=== PATIENT | male | born 1950 | race Caucasian/White ===

== ENCOUNTER → 2024-02-14 09:10 | Outpatient (REF) | payer MEDICARE, SELFPAY | LOC: HWRAD 09:10 | PROVIDERS: ATTENDING PHYSICIAN Family Medicine | DX: M81.0 Age-related osteoporosis without current pathological fracture (principal); Z79.52 Long term (current) use of systemic steroids | CPT/HCPCS: 77080 ==

== ENCOUNTER 2025-01-21 08:30 | Emergency (ER) | payer MEDICARE, SELFPAY ==
[2025-01-21 08:31] VITALS: BP 176/100
--- NOTE | 2025-01-21 09:00 | ED.GENMED ---
History of Present Illness
General
Chief Complaint: Rectal Bleeding
Time Seen by Provider: 01/21/25 09:00
History of Present Illness
History of Present Illness:
TIME OF INITIAL ENCOUNTER: 9 AM
HPI: Patient presents with rectal bleeding that started yesterday. He is on aspirin for prophylaxis but does not have any known coronary disease or cerebrovascular disease. He states that he has had hemorrhoids but was not sure that this was a
hemorrhoid because he was not straining yesterday. He never had any perianal pain or any abdominal pain. He had a kidney transplant in the past but renal function is reportedly normal.
EXAM:
GENERAL: Well appearing in no distress
HEENT: Moist oral mucosa
CARDIOVASCULAR: No murmurs, normal heart rate, regular rhythm, No chest wall tenderness
PULMONARY: No respiratory distress, breath sounds are clear and equal
ABDOMEN: Soft with no peritoneal signs, no tenderness, there is suggestion of nonbleeding hemorrhoid at the 3 o'clock position of the anal verge
NEUROLOGIC: Excellent strength all extremities, no coordination deficits
PSYCHIATRIC: Appropriate mental status, normal insight and judgement
EXTREMITIES: Nontender, no edema, moves all extremities equally
SKIN: No rash, no lesions
NUMBER AND COMPLEXITY OF PROBLEMS ADDRESSED AT THE ENCOUNTER
� Chronic conditions affecting care: Had kidney transplant, IDDM, hemorrhoids
� Acute Exacerbation and/or Progression of Chronic Illness: This is an acute problem
� Differential Diagnosis includes: Hemorrhoidal bleeding, diverticular bleeding, bleeding from antiplatelet use
AMOUNT AND/OR COMPLEXITY OF DATA TO BE REVIEWED AND ANALYZED
� I performed an independent evaluation of and my interpretation is:
EKG:
CT:
X-rays:
Laboratory Studies: White blood cell count of 6.9, hemoglobin is 12.1 which is higher than it was in November 2021, creatinine 0.9, BUN 23 (lower than prior)
Other:
� Review of other/old records: The patient was admitted with FRANCHESKA in November 2021
� Clinical information was obtained by an independent historian: I spoke to grandson at bedside
� Prescriptions/Medications Considered but not given:
� Further testing considered but not performed:
RISK OF COMPLICATIONS AND/OR MORBIDITY OR MORTALITY OF PATIENT MANAGEMENT
� Social determinants of health affecting care: Lives at home
� Discussion with other providers: Dr. Chauhan
� Escalation of care including admission/observation vs risk of discharge considered: Based on appearance of right red blood, highly doubt upper GI bleed. He has no pain. He is hemodynamically stable and somewhat hypertensive
however he did arrive slightly tachycardic stating that he feels anxious.
ANY OTHER UPDATES:
The patient did have an episode of bleeding shortly after arrival in the emergency department.
11:45 AM: The patient has had no further bleeding over the last 1-1/2 to 2 hours. He has remained hemodynamically stable and heart rate has decreased. Dr. Chauhan agrees with close outpatient follow-up.
Past History
Past History
ED Past Medical History: HTN, Hypercholesterolemia, NIDDM and Other (History of kidney failure with kidney transplant in 2002)
ED Past Surgical History: Other (Kidney transplant 2002)
Social History
Tobacco: Smoker (Cigars occasionally)
Alcohol: None
Drug: None
Personal:
Living: with family
Employment: Employed
Family History
Family History: Other (Noncontributory)
Phy Exam
Physical Exam
Physical Exam:
See HPI
Course
Orders/Labs/Results
Orders:
Orders
01/21/25 08:46
Cardiac Monitoring- Treatment ONCE
IV Insert/Care/Rem.- Treatment PRN
O2 Therapy [RESP] Urgent
Titrate/Wean O2 to maintain O2 sat greater than (%): 93
Special Instructions: MAINTAIN CONTINOUS O2 SATS > OR = 93%
Pulse Ox/spot Check [RESP] Urgent
Quantity: 1
Special Instructions: ON ROOM AIR
01/21/25 09:14
Type+Screen Urgent
Complete Blood Count/With Diff Urgent
Comprehensive Metabolic Panel Urgent
PTT Urgent
Prothrombin Time Urgent
01/21/25 09:47
ABO2 Urgent
BBK Wristband Number:
Associate notified that ABO2 has been ordered: [id number]
Date: 01/21/25
Time: :25
Title I Teacher ID: [id number]
Abnormal Lab Results
01/21/25
09:14
RBC 4.08 L 10^6/uL
(4.70-6.10)
Hgb 12.1 L g/dL
(13.0-18.0)
Hct 36.6 L %
(39.0-52.0)
Absolute Monos (auto) 1.1 H 10^3/uL
(0.1-0.6)
Monocytes % 15.4 H %
(1.7-9.3)
Chloride 108 H mmol/L
(98-107)
BUN 23 H mg/dl
(9-20)
Glucose 172 H mg/dl
(70-99)
01/21/25 09:14
01/21/25 09:14
Vital Signs
Initial and Last Documented VS:
Initial Vital Signs
Temp Pulse Resp BP Pulse Ox
36.9 C 120 18 176/100 96
01/21/25 08:31 01/21/25 08:31 01/21/25 08:31 01/21/25 08:31 01/21/25 08:31
Last Documented Vital Signs
Temp Pulse Resp BP Pulse Ox
36.9 C 102 16 150/86 94
01/21/25 08:31 01/21/25 09:30 01/21/25 09:30 01/21/25 09:28 01/21/25 09:30
*Critical Care Note
Total Time (30-74mins, 75-104mins- exclusive of procedures): Not Applicable
ED Attending Note
-
Portions of this chart may have been created with voice recognition software.� Occasional wrong word or��sound alike� substitutions may have occurred due to the inherent limitations of voice recognition software.
Discharge Plan
Departure
Patient Disposition: Home (Routine Discharge)
Date of Disposition: 01/21/25
Time of Disposition: 11:45
Patient with high blood pressure during this ER visit?: Yes
Discharge Problem:
Acute lower gastrointestinal bleeding
Instructions: Gastrointestinal Bleeding (DC)
Prescriptions:
No Action
tacrolimus 1 MG capsule
3 mg PO DAILY
tacrolimus 1 MG capsule
2 mg PO HS
famotidine 40 MG tablet
40 mg PO HS
prednisone 5 MG tablet
5 mg PO DAILY
amlodipine 2.5 MG tablet
2.5 mg PO DAILY
aspirin 81 MG tablet,chewable
81 mg PO DAILY
rosuvastatin 10 MG tablet
10 mg PO DAILY
multivitamin with folic acid [Tab-A-Lalit] 1 TABLET tablet
1 tab PO DAILY
insulin glargine [Lantus Solostar U-100 Insulin] 300 UNITS/3 ML insulin pen
44 units SC HS
Patient Comments:
First dose Lantus started 05/19/16
tamsulosin 0.4 mg Capsule
0.4 mg PO DAILY
dapagliflozin propanediol [Farxiga] 5 mg Tablet
10 mg PO DAILY
Mounjaro 2.5 mg/0.5 mL Pen Injector
2.5 mg SC QWEEK
Rx Instructions:
for 4 weeks
Humalog KwikPen Insulin 200 UNIT/ML insulin pen
18 unit SC AMHS
Humalog KwikPen Insulin 200 UNIT/ML insulin pen
24 unit SC DAILY@1200
Referrals:
Carolina Leal MD [Family Provider] -
Activity Restrictions/Additional Instructions:
The hemoglobin level is normal and actually improved compared to prior. Kidney function is normal. I spoke to Dr. Chauhan, partner of Dr. Kwok their office this week to arrange close follow-up. I recommend that you stop aspirin for the next week.
Return here if worse or other concerns.
Interventions
Interventions:
*Risk Screen - Suicide Last Done: 01/21/25 08:31
*General Assessment Last Done: 01/21/25 08:31
*Neglect/Abuse Screening Last Done: 01/21/25 09:31
*ED- Fall Risk Assessment Last Done: 01/21/25 11:39
*ED COVID-19 Vaccine History Last Done: 01/21/25 08:31
UY-Dcdblw-Odhlnfuxaj Assessment Last Done: 01/21/25 09:31
ED- Cardiac Assessment Last Done: 01/21/25 09:31
ED- Pulmonary Assessment Last Done: 01/21/25 09:31
Discharge Date and Time
Print Language: ANDORRAN
[2025-01-21 09:21] LABS: % Basophils 0.4 % (0-2); % Eosinophils 4.1 % (0-6); % Immature Granulocytes 0.1 % (0-0.5); % Lymphocytes 22.7 % (20.5-51.1); % Monocytes 15.4 % (1.7-9.3); % Neutrophils 57.3 % (42.2-75.2); Absolute Eosinophils 0.3 10^3/uL (0-0.7); Absolute Lymphocytes 1.6 10^3/uL (1.2-3.4); Absolute Monocytes 1.1 10^3/uL (0.1-0.6); Absolute Neutrophils 3.9 10^3/uL (1.4-6.5); Hematocrit 36.6 % (39.0-52.0); Hemoglobin 12.1 g/dL (13.0-18.0); Mean Corp Hgb Conc. 33.1 g/dL (33.0-37.0); Mean Corpuscular Hgb 29.7 pg (27.0-31.0); Mean Corpuscular Volume 89.7 fL (80.0-94.0); Mean Platelet Volume 9.9 fL (7.4-10.4); Nucleated Red Blood Cells % 0 % (-); Platelet Count 157 10^3/uL (130-400); Red Blood Cell Count 4.08 10^6/uL (4.70-6.10); Red Cell Dist. Width 13.2 % (11.5-14.5); White Blood Cell Count 6.9 10^3/uL (4.8-10.8)
[2025-01-21 09:28] VITALS: BP 150/86
[2025-01-21 09:37] LABS: INR 0.94; PT 12.9 Sec (11.4-14.6)
[2025-01-21 09:38] LABS: APTT 26.3 Sec (23.4-35.0)
[2025-01-21 09:39] LABS: ALT (SGPT) 28 U/L (0-50); AST (SGOT) 21 U/L (17-59); Albumin 3.9 g/dl (3.5-5.0); Alkaline Phosphatase 61 U/L (38-126); Blood Urea Nitrogen 23 mg/dl (9-20); Calcium 9.3 mg/dl (8.4-10.2); Carbon Dioxide 24 mmol/L (22-30); Chloride 108 mmol/L (98-107); Glucose 172 mg/dl (70-99); Potassium 4.2 mmol/L (3.5-5.1); Sodium 141 mmol/L (135-145); Total Bilirubin 0.5 mg/dl (0.2-1.3); Total Protein 6.5 g/dl (6.3-8.2); eGFR > 60.00
== END 2025-01-21 12:15 | disposition home or self-care (01) ==
LOC: EMR 08:30
PROVIDERS: Emergency Medicine; EMERGENCY PHYSICIAN Emergency Medicine; FAMILY PHYSICIAN Family Medicine
DX: K92.2 Gastrointestinal hemorrhage, unspecified (principal); E11.9 Type 2 diabetes mellitus without complications; Z94.0 Kidney transplant status; F17.290 Nicotine dependence, other tobacco product, uncomplicated; I10 Essential (primary) hypertension; E78.00 Pure hypercholesterolemia, unspecified; Z87.19 Personal history of other diseases of the digestive system
CPT/HCPCS: 99283; 80053; 85025; 85610; 85730; 86850; 86900; 86901

== ENCOUNTER 2025-01-24 14:52 | Inpatient (IN) | payer MEDICARE, SELFPAY ==
[2025-01-24] VITALS (13 sets, daily range): BP systolic 112–147; BP diastolic 59–79; BMI 29.8; BMI 29.4
[2025-01-24 12:03] LABS: ALT (SGPT) 25 U/L (0-50); AST (SGOT) 19 U/L (17-59); Alkaline Phosphatase 56 U/L (38-126); Blood Urea Nitrogen 20 mg/dl (9-20); Calcium 8.5 mg/dl (8.4-10.2); Carbon Dioxide 24 mmol/L (22-30); Chloride 106 mmol/L (98-107); Glucose 152 mg/dl (70-99); Sodium 139 mmol/L (135-145); Total Bilirubin 0.5 mg/dl (0.2-1.3); Total Protein 6.2 g/dl (6.3-8.2); eGFR > 60.00
[2025-01-24 12:04] LABS: INR 0.99; PT 13.6 Sec (11.4-14.6)
--- NOTE | 2025-01-24 12:26 | ED.GENMED ---
History of Present Illness
General
Chief Complaint: Rectal Bleeding
Time Seen by Provider: 01/24/25 12:26
History of Present Illness
History of Present Illness:
TIME OF INITIAL ENCOUNTER: 12:30 PM
HPI: I saw this patient 3 days ago with similar symptoms. At that time he came in with bright red rectal bleeding that started the day prior. He is on aspirin for prophylaxis for CAD but does not have any known CAD/cerebrovascular disease. He was
diagnosed with hemorrhoids in the past. He has not had any abdominal pain. He has a history of renal transplant. He does not necessarily feel any shortness of breath or weaker than baseline.
EXAM:
GENERAL: Well appearing in no distress
HEENT: Moist oral mucosa
CARDIOVASCULAR: No murmurs, tachycardic heart rate, regular rhythm, No chest wall tenderness
PULMONARY: No respiratory distress, breath sounds are clear and equal
ABDOMEN: Soft with no peritoneal signs, no tenderness, no obvious hemorrhoids on exam and the blood is darker in appearance and not as bright as it was 3 days ago
NEUROLOGIC: Excellent strength all extremities, no coordination deficits
PSYCHIATRIC: Appropriate mental status, normal insight and judgement
EXTREMITIES: Nontender, no edema, moves all extremities equally
SKIN: No rash, no lesions
NUMBER AND COMPLEXITY OF PROBLEMS ADDRESSED AT THE ENCOUNTER
� Chronic conditions affecting care: Has had kidney transplant, IDDM, hemorrhoids, diverticular disease
� Acute Exacerbation and/or Progression of Chronic Illness: This is a subacute problem
� Differential Diagnosis includes: Hemorrhoidal bleed, diverticular bleeding, bleeding from antiplatelet use, anemia
AMOUNT AND/OR COMPLEXITY OF DATA TO BE REVIEWED AND ANALYZED
� I performed an independent evaluation of and my interpretation is:
EKG:
CT:
X-rays:
Laboratory Studies: CMP unremarkable exception of glucose of 152, hemoglobin 10.2.
Other:
� Review of other/old records: I reviewed records, the patient was admitted here with FRANCHESKA in November 2021
� Clinical information was obtained by an independent historian: I spoke to at bedside
� Prescriptions/Medications Considered but not given:
� Further testing considered but not performed:
RISK OF COMPLICATIONS AND/OR MORBIDITY OR MORTALITY OF PATIENT MANAGEMENT
� Social determinants of health affecting care: Lives at home
� Discussion with other providers: I notified Dr. Andrea of patient's presentation at 12:[address] Valencia for admission.
� Escalation of care including admission/observation vs risk of discharge considered: The other day, Dr. Chauhan evaluated patient in the Emergency Department and recommended outpatient follow-up. The patient's hemoglobin has
dropped 2 g from Wednesday until yesterday and is the same from yesterday to today. However symptoms have been worsening more recently. I spoke to Who recommends patient stay in the hospital for further observation and management. On rectal
examination today, the blood is darker than it was 3 days ago.
ANY OTHER UPDATES:
Past History
Past History
ED Past Medical History: HTN, Hypercholesterolemia, NIDDM and Other (History of kidney failure with kidney transplant in 2002)
ED Past Surgical History: Other (Kidney transplant 2002)
Social History
Tobacco: Smoker (Cigars occasionally)
Alcohol: None
Drug: None
Personal:
Living: with family
Employment: Employed
Family History
Family History: Other (Noncontributory)
Phy Exam
Physical Exam
Physical Exam:
See HPI
Course
Orders/Labs/Results
Orders:
Orders
01/24/25 11:38
Type+Screen Urgent
Complete Blood Count/With Diff Urgent
Comprehensive Metabolic Panel Urgent
PTT Urgent
Prothrombin Time Urgent
01/24/25 13:28
0.9% Sodium Chloride 500 ml [Nss] 500 ml IV BOLUS
Abnormal Lab Results
01/24/25
11:38
RBC 3.33 L 10^6/uL
(4.70-6.10)
Hgb 10.2 L g/dL
(13.0-18.0)
Hct 29.6 L %
(39.0-52.0)
MPV 10.5 H fL
(7.4-10.4)
Absolute Monos (auto) 1.2 H 10^3/uL
(0.1-0.6)
Monocytes % 16.8 H %
(1.7-9.3)
Glucose 152 H mg/dl
(70-99)
Total Protein 6.2 L g/dl
(6.3-8.2)
01/24/25 11:38
01/24/25 11:38
Vital Signs
Initial and Last Documented VS:
Initial Vital Signs
Temp Pulse Resp BP Pulse Ox
36.6 C 110 16 131/79 98
01/24/25 11:29 01/24/25 11:29 01/24/25 11:29 01/24/25 11:29 01/24/25 11:29
Last Documented Vital Signs
Temp Pulse Resp BP Pulse Ox
36.6 C 94 25 131/61 94
01/24/25 11:29 01/24/25 13:35 01/24/25 13:35 01/24/25 13:35 01/24/25 13:35
*Critical Care Note
Total Time (30-74mins, 75-104mins- exclusive of procedures): Not Applicable
ED Attending Note
-
Portions of this chart may have been created with voice recognition software.� Occasional wrong word or��sound alike� substitutions may have occurred due to the inherent limitations of voice recognition software.
Discharge Plan
Departure
Patient Disposition: Admit
Date of Disposition: 01/24/25
Time of Disposition: 12:56
Presentation/result/management discussed w/ accepting MD/DO: Hospitalist
Discharge Problem:
Acute lower gastrointestinal bleeding
Prescriptions:
No Action
tacrolimus 1 MG capsule
3 mg PO DAILY
tacrolimus 1 MG capsule
2 mg PO HS
famotidine 40 MG tablet
40 mg PO HS
prednisone 5 MG tablet
5 mg PO DAILY
aspirin 81 MG tablet,chewable
81 mg PO DAILY
rosuvastatin 10 MG tablet
10 mg PO DAILY
multivitamin with folic acid [Tab-A-Lalit] 1 TABLET tablet
1 tab PO DAILY
insulin glargine [Lantus Solostar U-100 Insulin] 300 UNITS/3 ML insulin pen
44 units SC HS
tamsulosin 0.4 mg Capsule
0.4 mg PO DAILY
dapagliflozin propanediol [Farxiga] 5 mg Tablet
10 mg PO DAILY
Mounjaro 2.5 mg/0.5 mL Pen Injector
2.5 mg SC SA
Rx Instructions:
for 4 weeks
Humalog KwikPen Insulin 200 UNIT/ML insulin pen
18 unit SC DAILY
Humalog KwikPen Insulin 200 UNIT/ML insulin pen
24 unit SC DAILY@1200
acetaminophen [Tylenol] 325 mg Tablet
650 mg PO Q6HPRN PRN (Reason: mild pain)
Metamucil Packet
1 packet PO DAILY
amlodipine [Norvasc] 10 mg Tablet
10 mg PO DAILY
docusate sodium [Colace] 100 mg Capsule
100 mg PO DAILYPRN PRN (Reason: constipation)
losartan 100 mg Tablet
100 mg PO DAILY
dexlansoprazole 60 mg capsule,biphase delayed releas
60 mg PO DAILY
Humalog KwikPen Insulin 200 unit/mL (3 mL) Insulin Pen
34 unit SC QPM
Referrals:
Carolina Leal MD [Family Provider] -
Interventions
Interventions:
*Risk Screen - Suicide Last Done: 01/24/25 11:29
*General Assessment Last Done: 01/24/25 12:33
*Neglect/Abuse Screening Last Done: 01/24/25 11:29
*ED- Fall Risk Assessment Last Done: 01/24/25 12:33
PN-Rwcsnw-Dheobvfajn Assessment Last Done: 01/24/25 12:36
ED- Cardiac Assessment Last Done: 01/24/25 12:33
ED- Pulmonary Assessment Last Done: 01/24/25 12:33
Discharge Date and Time
Print Language: SAMI
[2025-01-24 12:36] LABS: % Basophils 0.4 % (0-2); % Eosinophils 3.1 % (0-6); % Immature Granulocytes 0.3 % (0-0.5); % Lymphocytes 26.2 % (20.5-51.1); % Monocytes 16.8 % (1.7-9.3); % Neutrophils 53.2 % (42.2-75.2); Absolute Eosinophils 0.2 10^3/uL (0-0.7); Absolute Lymphocytes 1.9 10^3/uL (1.2-3.4); Absolute Monocytes 1.2 10^3/uL (0.1-0.6); Absolute Neutrophils 3.8 10^3/uL (1.4-6.5); Hematocrit 29.6 % (39.0-52.0); Hemoglobin 10.2 g/dL (13.0-18.0); Mean Corp Hgb Conc. 34.5 g/dL (33.0-37.0); Mean Corpuscular Hgb 30.6 pg (27.0-31.0); Mean Corpuscular Volume 88.9 fL (80.0-94.0); Mean Platelet Volume 10.5 fL (7.4-10.4); Nucleated Red Blood Cells % 0 % (-); Platelet Count 164 10^3/uL (130-400); Red Blood Cell Count 3.33 10^6/uL (4.70-6.10); Red Cell Dist. Width 13.2 % (11.5-14.5); White Blood Cell Count 7.1 10^3/uL (4.8-10.8)
[2025-01-24] MEDS: NSS 500 IV (13:31)
--- NOTE | 2025-01-24 13:34 | HPS.HSE ---
Family Physician
-
Family Physician: Carolina Leal
Chief Complaint
-
rectal bleeding
History of Present Illness
Mr. Tien Harp is a 74 man with hx IDDM, PCKD s/p renal transplant 2002, HTN, HLD presents to the ER with rectal bleeding.
Patient states on Wednesday he noted mild streak of blood. Wednesday morning had significant bleeding in toilet bowl, seen in ER with plans for outpatient follow up. Hg was 12.1. He thought bleeding was resolving but this morning noted more blood in
toilet bowl with large clots.
He denies chest pain, shortness of breath. No abdominal pain. No nausea/vomiting. No fevers/chills. He took his morning medications.
Medical History
Past Medical History
Past Medical History: Reports Other ( IDDM, PCKD s/p renal transplant 2002, HTN, HLD)
Past Surgical History: Reports Other (renal transplant)
Social History
Tobacco: Non-smoker
Alcohol: None
Family History
Family History: Not pertinent
Allergies / Home Medications
Allergies reflects when Allergies were last updated in [employer].
Home Medications with original date entered in [employer]
Allergy/Medication List:
Allergies
Allergy/AdvReac Type Severity Reaction Status Date / Time
No Known Allergies Allergy Verified 01/24/25 11:28
Home Medications
tacrolimus 1 mg capsule, immediate-release 3 mg PO DAILY Kidney Disease 12/12/14
aspirin 81 mg chewable tablet 81 mg PO DAILY Blood clot prevention/tx 12/03/21
famotidine 40 mg tablet 40 mg PO HS Gastrointestinal issue 12/03/21
multivitamin with folic acid 400 mcg tablet (Tab-A-Lalit) 1 tab PO DAILY Supplement 12/03/21
prednisone 5 mg tablet 5 mg PO DAILY 12/03/21
rosuvastatin 10 mg tablet 10 mg PO DAILY High cholesterol 12/03/21
tacrolimus 1 mg capsule, immediate-release 2 mg PO HS Kidney Disease 12/03/21
insulin glargine 100 unit/mL (3 mL) subcutaneous pen (Lantus Solostar U-100 Insulin) 44 units SC HS Diabetes 03/31/22
dapagliflozin propanediol 5 mg tablet (Farxiga) 10 mg PO DAILY 01/21/25
insulin lispro 200 unit/mL (3 mL) subcutaneous pen (Humalog KwikPen U-200 Insulin) 18 unit SC DAILY Diabetes 01/21/25
insulin lispro 200 unit/mL (3 mL) subcutaneous pen (Humalog KwikPen U-200 Insulin) 24 unit SC DAILY@1200 Diabetes 01/21/25
tamsulosin 0.4 mg capsule 0.4 mg PO DAILY 01/21/25
tirzepatide 2.5 mg/0.5 mL subcutaneous pen injector (Mounjaro) 2.5 mg SC SA 01/21/25
acetaminophen 325 mg tablet (Tylenol) 650 mg PO Q6HPRN PRN mild pain 01/24/25
amlodipine 10 mg tablet (Norvasc) 10 mg PO DAILY 01/24/25
dexlansoprazole 60 mg capsule,biphase delayed release 60 mg PO DAILY 01/24/25
docusate sodium 100 mg capsule (Colace) 100 mg PO DAILYPRN PRN constipation 01/24/25
insulin lispro 200 unit/mL (3 mL) subcutaneous pen (Humalog KwikPen U-200 Insulin) 34 unit SC QPM 01/24/25
losartan 100 mg tablet 100 mg PO DAILY 01/24/25
psyllium 1 packet PO DAILY 01/24/25
Review of Systems
-
History Source: Patient
A 12 point ROS was completed and negative except as noted: Yes
Physical Exam
Vital Signs
Vital Signs
Temp Pulse Resp BP Pulse Ox
98 F 101 25 127/66 95
01/24/25 11:29 01/24/25 13:15 01/24/25 13:15 01/24/25 12:31 01/24/25 13:15
Physical Exam
General: No Apparent Distress
HEENT: PERRLA
Respiratory: Clear; No Wheezes
Cardiac: S1/S2 and Regular Rhythm
GI: Soft and Non Tender
Musculoskeletal: No Edema
Skin: Warm and Dry; No Rash
Neuro: AO x 3
Psych: Calm
Laboratory Results
-
01/24/25 11:38
01/24/25 11:38
Laboratory Results
PT 13.6 Sec (11.4-14.6) 01/24/25 11:38
INR 0.99 01/24/25 11:38
APTT 25.0 Sec (23.4-35.0) 01/24/25 11:38
Total Bilirubin 0.5 mg/dl (0.2-1.3) 01/24/25 11:38
AST 19 U/L (17-59) 01/24/25 11:38
ALT 25 U/L (0-50) 01/24/25 11:38
Alkaline Phosphatase 56 U/L (38-126) 01/24/25 11:38
Data Reviewed
-
Diagnostic Radiology: Report Reviewed by me
Lab Data: Labs Reviewed by me
Impression/Plan
-
Mr. Tien Harp is a 74 man with hx IDDM, PCKD s/p renal transplant 2002, HTN, HLD presents to the ER with rectal bleeding. He was seen on 01/21, Hg 12.1, discharged with close outpatient follow up. He represents today with recurrent bleeding.
Triage VS: T 36.6 C, P 110, RR 16, BP 131/79, SpO2 98%
LABS: WBC 7.1, Hg 102, PLT 164, Na 139, K + 4, Cl 106, CO2 24, BUN 20, Cr 1.0, Glucose 152, liver enzymes WNL
Bright Red Blood Per Rectum
Acute Blood Loss Anemia
-admit to telemetry
-trend Hg, blood consent signed in ER
-appreciate GI
-CLD
-hold HOOKER OFF aspirin (for PPx)
IDDM
-home regimen: Humalog 18 units/ 24 units/ 34 units; Lantus 44 units qhs; Mounjaro subQ Sa; Farxiga 10mg PO QD
-will order 1/2 dose Lantus 22 units qhs; 5 units pre-meals with SS while on CLD
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
-HOOKER OFF regimen: Tacrolimus 3mg PO QD; 2mg qhs and Prednisone 5mg PO QD
Essential HTN
-hold HOOKER OFF Amlodipine for now during bleed
-HOOKER OFF Losartan with hold parameters
HLD
-HOOKER OFF statin
GERD - HOOKER OFF PPI, Pepcid
DVT PPx SCD
FULL CODE
76 minutes spent on patient care
--- NOTE | 2025-01-24 17:00 | PTCARENOTE ---
Pt received from the ED via stretcher. Transport was w/o incident. Pt is AAOX3, HRR, LCTA, resp. easy. VSS, Pt is afebrile. Pt instructed on the plan of care. Pt verbalized understanding of instructions, call cardoso is within reach.
[2025-01-24 18:00] LABS: Glucose - Point of Care 151 mg/dl (70-99)
[2025-01-24] MEDS: NOVOLOG FLEXPEN-LOW RESISTANCE 1 UNITS SC (18:02)
[2025-01-24] MEDS: NOVOLOG FLEXPEN 5 UNITS SC (18:02)
[2025-01-24 20:32] LABS: Hematocrit 27.1 % (39.0-52.0); Hemoglobin 9.2 g/dL (13.0-18.0)
[2025-01-24 21:15] LABS: Glucose - Point of Care 130 mg/dl (70-99)
[2025-01-24] MEDS: PROGRAF 2 MG PO (21:23)
[2025-01-24] MEDS: PEPCID 40 MG PO (21:23)
[2025-01-24] MEDS: LANTUS 0.22 UNITS SC (21:24)
[2025-01-25] VITALS (9 sets, daily range): BP systolic 113–162; BP diastolic 53–83; PULSE 89–116
[2025-01-25 02:05] LABS: Hematocrit 27.5 % (39.0-52.0); Hemoglobin 9.3 g/dL (13.0-18.0)
--- NOTE | 2025-01-25 05:16 | PTCARENOTE ---
NO acute events overnight. No reported episodes of melena. Hgb checked q8h. Last hgb 9.3.
--- NOTE | 2025-01-25 05:34 | W.PN.GI.CBS2 ---
Today's Communication / Plan
-
Please see assessment and plan for details.
Assessment / Plan
-
1. GI bleed: Likely diverticular given his history, but about a 3 g drop overall, though no bowel movement since yesterday morning, has been hemodynamically stable. His initial drop in the hospital likely more from dilution and IV fluids rather
than active bleeding. At this point given almost 24 hours of no significant bleeding will restart diet and await morning hemoglobin. If stable and no further significant bleeding is okay to DC later today. He has an appointment already set up
with Dr. Robert for next Wednesday, can plan diagnostic colonoscopy after that. If signs of brisk bleeding then nuclear medicine bleeding scan.
Subjective
Subjective
Date of Service: January 25, 2025
Patient feeling well, no bowel movement since yesterday morning. No abdominal pain, nausea vomiting, lightheadedness or dizziness.
Objective
Data Reviewed
Laboratory Data:
Laboratory Results
PT 13.6 Sec (11.4-14.6) 01/24/25 11:38
INR 0.99 01/24/25 11:38
APTT 25.0 Sec (23.4-35.0) 01/24/25 11:38
Total Bilirubin 0.5 mg/dl (0.2-1.3) 01/24/25 11:38
AST 19 U/L (17-59) 01/24/25 11:38
ALT 25 U/L (0-50) 01/24/25 11:38
Alkaline Phosphatase 56 U/L (38-126) 01/24/25 11:38
Vital Signs and I&O:
Vital Signs
Temp Pulse Resp BP Pulse Ox
98.2 F 94 16 138/75 96
01/25/25 02:58 01/25/25 02:59 01/25/25 02:58 01/25/25 02:59 01/25/25 02:58
I&O
01/23/25 01/24/25 01/25/25
06:59 06:59 06:59
Intake Total 690 / 690
Balance 690 / 690
Physical Exam
Physical Exam
General: NAD
Abdomen: normal bowel sounds, soft, no tenderness, no masses or bruits, no ascites
[2025-01-25 06:54] LABS: Hematocrit 27.4 % (39.0-52.0); Hemoglobin 9.1 g/dL (13.0-18.0); Mean Corp Hgb Conc. 33.2 g/dL (33.0-37.0); Mean Corpuscular Hgb 29.7 pg (27.0-31.0); Mean Corpuscular Volume 89.5 fL (80.0-94.0); Mean Platelet Volume 10.2 fL (7.4-10.4); Platelet Count 155 10^3/uL (130-400); Red Blood Cell Count 3.06 10^6/uL (4.70-6.10); Red Cell Dist. Width 13.2 % (11.5-14.5)
[2025-01-25 07:14] LABS: Glucose - Point of Care 88 mg/dl (70-99)
[2025-01-25 07:21] LABS: Blood Urea Nitrogen 16 mg/dl (9-20); Calcium 8.5 mg/dl (8.4-10.2); Carbon Dioxide 26 mmol/L (22-30); Chloride 108 mmol/L (98-107); Estimated Creatinine Clearance 67 ml/min; Glucose 85 mg/dl (70-99); Magnesium 1.9 mg/dl (1.6-2.3); Potassium 4.2 mmol/L (3.5-5.1); Sodium 139 mmol/L (135-145); eGFR > 60.00
[2025-01-25] MEDS: NOVOLOG FLEXPEN SC (07:36)
[2025-01-25] MEDS: NOVOLOG FLEXPEN-LOW RESISTANCE SC ×3 (07:37→17:08)
[2025-01-25] MEDS: PROGRAF 3 MG PO (07:40)
[2025-01-25] MEDS: COZAAR 100 MG PO (07:41)
[2025-01-25] MEDS: PROTONIX 40 MG PO (07:41)
[2025-01-25] MEDS: DELTASONE 5 MG PO (07:41)
[2025-01-25] MEDS: FLOMAX 0.4 MG PO (07:41)
[2025-01-25] MEDS: NOVOLOG FLEXPEN 5 UNITS SC ×3 (09:33→17:09)
[2025-01-25 10:00] LABS: Hematocrit 29.8 % (39.0-52.0)
--- NOTE | 2025-01-25 10:05 | W.PN.HOSP.TC ---
Today's Communication/Plan
-
follow up further GI recs - will change to CLD for now
Assessment / Plan
Assessment / Plan
Mr. Tien Harp is a 74 man with hx IDDM, PCKD s/p renal transplant 2002, HTN, HLD presents to the ER with rectal bleeding. He was seen on 01/21, Hg 12.1, discharged with close outpatient follow up. He represents today with recurrent bleeding.
Bright Red Blood Per Rectum
Acute Blood Loss Anemia
-admit to telemetry
-recurrent bleeding this morning, repeat Hg later today
-appreciate GI
-hold FURNACE CHECKER aspirin (for PPx)
IDDM
-home regimen: Humalog 18 units/ 24 units/ 34 units; Lantus 44 units qhs; Mounjaro subQ Sa; Farxiga 10mg PO QD
-will order 1/2 dose Lantus 22 units qhs; 5 units pre-meals with SS while on CLD
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
-FURNACE CHECKER regimen: Tacrolimus 3mg PO QD; 2mg qhs and Prednisone 5mg PO QD
Essential HTN
-hold FURNACE CHECKER Amlodipine for now during bleed
-FURNACE CHECKER Losartan with hold parameters
HLD
-FURNACE CHECKER statin
GERD - FURNACE CHECKER PPI, Pepcid
DVT PPx SCD
FULL CODE
51 minutes spent on patient care
Anticipated Discharge: 24 - 48 hours
Subjective/Interval History
-
Date of Service: January 25, 2025
more clots this morning, had not had bleeding overnight
Objective Data
-
Labs:
Laboratory Results
01/25/25 01/25/25 01/25/25
01:59 06:01 09:53
WBC 6.0
Hgb 9.3 L 9.1 L 10.0 L
Hct 27.5 L 27.4 L 29.8 L
Plt Count 155
Sodium 139
Potassium 4.2
Chloride 108 H
Carbon Dioxide 26
BUN 16
Creatinine 0.9
Glucose 85
Calcium 8.5
Vital Signs:
Vital Signs
Temp Pulse Resp BP Pulse Ox
98.1 F 93 16 136/74 96
01/25/25 07:35 01/25/25 07:41 01/25/25 07:35 01/25/25 07:41 01/25/25 07:35
I&O
01/24/25 01/25/25 01/26/25
06:59 06:59 06:59
Intake Total 690 / 690
Balance 690 / 690
Review of Systems
-
History Source: Patient
All other systems: Reviewed and negative
Physical Exam
-
General: No Apparent Distress
HEENT: PERRLA
Respiratory: Clear to Auscultation; Negative Wheezes
Cardiac: Regular Rhythm and S1/S2
GI: Soft and Nontender
Musculoskeletal: No Edema
Skin: Warm and Dry; Negative Rash
Neuro: AO x 3
Psych: Calm
Data Reviewed
-
Diagnostic Radiology: Report Reviewed by me
Labs: Labs Reviewed by me
[2025-01-25 11:13] LABS: Glycohemoglobin (HgbA1c) 6.9 % (4.0-5.6)
[2025-01-25 11:45] LABS: Glucose - Point of Care 188 mg/dl (70-99)
--- NOTE | 2025-01-25 12:03 | CM ---
Patient seen bedside.
IA completed.
Patient lives with spouse.
Lives in apartment with elevator access.
Patient independent prior to admission without assistive devices.
patient retired, drives.
No hx VN, or skilled rehab.
IMM completed.
PCP: Dr Leal
Pharmacy: [facility]
Plan: home no needs, spouse will transport.
[2025-01-25] MEDS: NOVOLOG FLEXPEN-LOW RESISTANCE 1 UNITS SC (12:17)
[2025-01-25 17:05] LABS: Glucose - Point of Care 128 mg/dl (70-99)
[2025-01-25 20:30] LABS: Hemoglobin 9.2 g/dL (13.0-18.0)
[2025-01-25] MEDS: CRESTOR 20 MG PO (21:22)
[2025-01-25] MEDS: PROGRAF 2 MG PO (21:22)
[2025-01-25] MEDS: PEPCID 40 MG PO (21:22)
[2025-01-25 21:48] LABS: Glucose - Point of Care 105 mg/dl (70-99)
[2025-01-25] MEDS: LANTUS SC (23:22)
[2025-01-26] VITALS (14 sets, daily range): BP systolic 17–151; BP diastolic 60–85; PULSE 98–123
[2025-01-26 07:39] LABS: Glucose - Point of Care 109 mg/dl (70-99)
[2025-01-26] MEDS: NOVOLOG FLEXPEN-LOW RESISTANCE SC ×3 (07:47→17:27)
[2025-01-26] MEDS: COZAAR 100 MG PO (08:30)
[2025-01-26 08:31] LABS: Hematocrit 28.7 % (39.0-52.0); Hemoglobin 9.8 g/dL (13.0-18.0); Mean Corp Hgb Conc. 34.1 g/dL (33.0-37.0); Mean Corpuscular Hgb 30.2 pg (27.0-31.0); Mean Corpuscular Volume 88.6 fL (80.0-94.0); Mean Platelet Volume 10.4 fL (7.4-10.4); Platelet Count 186 10^3/uL (130-400); Red Blood Cell Count 3.24 10^6/uL (4.70-6.10); Red Cell Dist. Width 13.3 % (11.5-14.5); White Blood Cell Count 6.2 10^3/uL (4.8-10.8)
[2025-01-26] MEDS: DELTASONE 5 MG PO (08:32)
[2025-01-26] MEDS: PROGRAF 3 MG PO (08:32)
[2025-01-26] MEDS: PROTONIX 40 MG PO (08:33)
[2025-01-26] MEDS: NOVOLOG FLEXPEN 5 UNITS SC ×2 (08:33→18:10)
[2025-01-26] MEDS: FLOMAX 0.4 MG PO (08:33)
--- NOTE | 2025-01-26 08:41 | W.PN.HOSP.TC ---
Today's Communication/Plan
-
repeat Hg at noon
Fulls
F/U further GI recs
Assessment / Plan
Assessment / Plan
Mr. Tien Harp is a 74 man with hx IDDM, PCKD s/p renal transplant 2002, HTN, HLD presents to the ER with rectal bleeding. He was seen on 01/21, Hg 12.1, discharged with close outpatient follow up. He represents today with recurrent bleeding.
Bright Red Blood Per Rectum
Acute Blood Loss Anemia
-admitted to telemetry
-Hg has been stable
-recurrent bleeding again this morning versus old blood?, repeat Hg later today
-appreciate GI
-hold SERGING MACHINE OPERATOR aspirin (for PPx)
IDDM
-home regimen: Humalog 18 units/ 24 units/ 34 units; Lantus 44 units qhs; Mounjaro subQ Sa; Farxiga 10mg PO QD
-will order 1/2 dose Lantus 22 units qhs; 5 units pre-meals with SS while on CLD
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
-SERGING MACHINE OPERATOR regimen: Tacrolimus 3mg PO QD; 2mg qhs and Prednisone 5mg PO QD
Essential HTN
-hold SERGING MACHINE OPERATOR Amlodipine for now during bleed
-SERGING MACHINE OPERATOR Losartan with hold parameters
HLD
-SERGING MACHINE OPERATOR statin
GERD - SERGING MACHINE OPERATOR PPI, Pepcid
DVT PPx SCD
FULL CODE
51 minutes spent on patient care
Anticipated Discharge: Within 24 hours
Subjective/Interval History
-
Date of Service: January 26, 2025
some bleeding earlier this morning around 2 AM then small dark clots in stool an hour ago
no pain
Objective Data
-
Labs:
Laboratory Results
01/26/25
07:46
WBC 6.2
Hgb 9.8 L
Hct 28.7 L
Plt Count 186
Sodium Pending
Potassium Pending
Chloride Pending
Carbon Dioxide Pending
BUN Pending
Creatinine Pending
Glucose Pending
Calcium Pending
Vital Signs:
Vital Signs
Temp Pulse Resp BP Pulse Ox
97.8 F 101 16 138/72 93
01/26/25 07:31 01/26/25 07:31 01/26/25 07:31 01/26/25 07:31 01/26/25 07:31
I&O
01/25/25 01/26/25 01/27/25
06:59 06:59 06:59
Intake Total 690 / 690 1617 / 1617
Balance 690 / 690 1617 / 1617
Review of Systems
-
History Source: Patient
All other systems: Reviewed and negative
Physical Exam
-
General: No Apparent Distress
HEENT: PERRLA
Respiratory: Clear to Auscultation; Negative Wheezes
Cardiac: Regular Rhythm and S1/S2
GI: Soft and Nontender
Musculoskeletal: No Edema
Skin: Warm and Dry; Negative Rash
Neuro: AO x 3
Psych: Calm
Data Reviewed
-
Diagnostic Radiology: Report Reviewed by me
Labs: Labs Reviewed by me
[2025-01-26 09:04] LABS: Blood Urea Nitrogen 14 mg/dl (9-20); Calcium 8.9 mg/dl (8.4-10.2); Carbon Dioxide 25 mmol/L (22-30); Chloride 106 mmol/L (98-107); Estimated Creatinine Clearance 67 ml/min; Glucose 114 mg/dl (70-99); Potassium 4.3 mmol/L (3.5-5.1); Sodium 137 mmol/L (135-145); eGFR > 60.00
--- NOTE | 2025-01-26 10:39 | W.PN.GI.CBS2 ---
Today's Communication / Plan
-
still with bleeding last PM, 2 am and 7 am red blood with clots
hbg slow drop 9.8 today from 12 with onset cont to trend
plan for flex later today- with enema now then promotions specialist
NPO had clear breakfast - 8AM
last Mounjaro 01/20 -- checking with anesthesia with recent use
cont PPI
if increased frequent stools -- consider Nuc med bleeding scan
last colon 2021
family and nursing staff updated
pt is scheduled next week with Dr. Robert-- will need to decide if can cancel pending status
Assessment / Plan
-
74-year-old male with past medical history of polycystic kidney disease status post kidney transplant 2002 (on tacrolimus and prednisone), hyperlipidemia, hypertension, GERD, squamous cell cancer, recurrent basal cell cancer, metabolic syndrome,
diabetes (on insulin as well as Mounjaro), bilateral [place] nephrectomy, diverticulosis and colon polyp who presents to the emergency room with rectal bleeding. Initially was discharged then returns. Noted multiple intermittent red/burgundy stools
with clots since Wednesday. No AC. On Mounjaro prior to admission.
EGD: 08/21/2022 (Dr. Robert) - Normal esophagus. Biopsied.
- Erythematous mucosa in the antrum. Biopsied.
- 2 cm hiatal hernia.
- Normal examined duodenum.
Colonoscopy: 11/14/2021 (Dr. Robert) - Non-bleeding internal hemorrhoids.
- Diverticulosis in the sigmoid colon and in the
descending colon.
- The examination was otherwise normal.
- One 5 mm polyp in the ascending colon, removed with
a hot snare. Resected and retrieved. Clip (MR
conditional) was placed.
Rectal bleeding, diverticular vs other -- persistent since 01/22
History of kidney transplant
Diabetic on GLP-1
Plan:
still with bleeding last PM, 2 am and 7 am red blood with clots
hbg slow drop 9.8 today from 12 with onset cont to trend
plan for flex later today- with enema now then promotions specialist
NPO had clear breakfast - 8AM
last Mounjaro 01/20 -- checking with anesthesia with recent use
cont PPI
if increased frequent stools -- consider Nuc med bleeding scan
last colon 2021
family and nursing staff updated
pt is scheduled next week with Dr. Robert-- will need to decide if can cancel pending status
Subjective
Subjective
Date of Service: January 26, 2025
bloody stool overnight and this am with clots-- pattern has been large stool with blood and clots x 1 then no stool for several hours and recurrent pattern since Wednesday
Objective
Data Reviewed
Laboratory Data:
Laboratory Results
01/26/25 07:46
Laboratory Results
PT 13.6 Sec (11.4-14.6) 01/24/25 11:38
INR 0.99 01/24/25 11:38
APTT 25.0 Sec (23.4-35.0) 01/24/25 11:38
Magnesium 1.9 mg/dl (1.6-2.3) 01/25/25 06:01
Total Bilirubin 0.5 mg/dl (0.2-1.3) 01/24/25 11:38
AST 19 U/L (17-59) 01/24/25 11:38
ALT 25 U/L (0-50) 01/24/25 11:38
Alkaline Phosphatase 56 U/L (38-126) 01/24/25 11:38
Vital Signs and I&O:
Vital Signs
Temp Pulse Resp BP Pulse Ox
97.8 F 101 16 130/72 93
01/26/25 07:31 01/26/25 08:30 01/26/25 07:31 01/26/25 08:30 01/26/25 07:31
I&O
01/25/25 01/26/2525
06:59 06:59 06:59
Intake Total 690 / 690 1617 / 1617
Balance 690 / 690 1617 / 1617
Physical Exam
Physical Exam
HEENT: Anicteric and Moist mucous membranes
Cardiology: Normal Sinus Rhythm
Pulmonary: Clear
GI: Soft, Non Distended and Non Tender
Extremities: No Edema
Neuro: Non Focal
--- NOTE | 2025-01-26 11:51 | CM ---
Chart reviewed
For flex scan today - NPO
Plan - anticipate home no needs
[2025-01-26 12:29] LABS: Hemoglobin 9.4 g/dL (13.0-18.0)
[2025-01-26 12:31] LABS: Glucose - Point of Care 148 mg/dl (70-99)
[2025-01-26] MEDS: NOVOLOG FLEXPEN SC (12:33)
[2025-01-26 17:15] LABS: Glucose - Point of Care 147 mg/dl (70-99)
[2025-01-26 20:12] LABS: Hemoglobin 9.1 g/dL (13.0-18.0)
[2025-01-26 21:32] LABS: Glucose - Point of Care 170 mg/dl (70-99)
[2025-01-26] MEDS: LANTUS 0.22 UNITS SC (21:39)
[2025-01-26] MEDS: CRESTOR 20 MG PO (21:39)
[2025-01-26] MEDS: PROGRAF 2 MG PO (21:40)
[2025-01-26] MEDS: PEPCID 40 MG PO (21:40)
[2025-01-27 03:03] VITALS: BP 123/55
--- NOTE | 2025-01-27 05:40 | PTCARENOTE ---
Pt had 2 BM this shift 0200 and 0530 with small clots with small/mod yuly red blood. Pt reports he does not have control and has come on suddenly each time.
[2025-01-27 07:00] VITALS: BP 136/76
[2025-01-27 07:14] LABS: Glucose - Point of Care 122 mg/dl (70-99)
[2025-01-27] MEDS: PROTONIX 40 MG PO (07:57)
[2025-01-27] MEDS: COZAAR 100 MG PO (07:57)
[2025-01-27] MEDS: DELTASONE 5 MG PO (07:57)
[2025-01-27] MEDS: FLOMAX 0.4 MG PO (07:57)
[2025-01-27 07:58] LABS: Hematocrit 26.7 % (39.0-52.0); Mean Corp Hgb Conc. 33.7 g/dL (33.0-37.0); Mean Corpuscular Hgb 30.2 pg (27.0-31.0); Mean Corpuscular Volume 89.6 fL (80.0-94.0); Mean Platelet Volume 10.9 fL (7.4-10.4); Platelet Count 168 10^3/uL (130-400); Red Blood Cell Count 2.98 10^6/uL (4.70-6.10); Red Cell Dist. Width 13.2 % (11.5-14.5); White Blood Cell Count 6.5 10^3/uL (4.8-10.8)
[2025-01-27] MEDS: NOVOLOG FLEXPEN-LOW RESISTANCE SC ×2 (08:02→17:03)
[2025-01-27] MEDS: PROGRAF 3 MG PO (08:05)
--- NOTE | 2025-01-27 08:32 | W.PN.HOSP.TC ---
Today's Communication/Plan
-
clear
repeat Hg this afternoon
F/U further GI recs
Assessment / Plan
Assessment / Plan
Mr. Tien Harp is a 74 man with hx IDDM, PCKD s/p renal transplant 2002, HTN, HLD presents to the ER with rectal bleeding. He was seen on 01/21, Hg 12.1, discharged with close outpatient follow up. He represents today with recurrent bleeding.
Bright Red Blood Per Rectum
Acute Blood Loss Anemia
-admitted to telemetry
-Hg relatively stable
-s/p sigmoidoscopy on 01/26 with e/o recent diverticular bleeding and large amounts of residual blood
-further BRBPR this morning - likely old blood with stable Hg - will repeat again this afternoon
-appreciate GI
-hold WIRE TESTER aspirin (for PPx)
-continue clears
IDDM
-home regimen: Humalog 18 units/ 24 units/ 34 units; Lantus 44 units qhs; Mounjaro subQ Sa; Farxiga 10mg PO QD
-will order 1/2 dose Lantus 22 units qhs; 5 units pre-meals with SS while on CLD
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
-WIRE TESTER regimen: Tacrolimus 3mg PO QD; 2mg qhs and Prednisone 5mg PO QD
Essential HTN
-hold WIRE TESTER Amlodipine for now during bleed
-WIRE TESTER Losartan with hold parameters
HLD
-WIRE TESTER statin
GERD - WIRE TESTER PPI, Pepcid
DVT PPx SCD
FULL CODE
51 minutes spent on patient care
Anticipated Discharge: 24 - 48 hours
Subjective/Interval History
-
Date of Service: January 27, 2025
more bright red blood per rectum this morning
Objective Data
-
Labs:
Laboratory Results
01/27/25
06:08
WBC 6.5
Hgb 9.0 L
Hct 26.7 L
Plt Count 168
Sodium Pending
Potassium Pending
Chloride Pending
Carbon Dioxide Pending
BUN Pending
Creatinine Pending
Glucose Pending
Calcium Pending
Vital Signs:
Vital Signs
Temp Pulse Resp BP Pulse Ox
98.1 F 111 17 136/76 94
01/27/25 03:03 01/27/25 07:57 01/27/25 03:03 01/27/25 07:57 01/27/25 03:03
I&O
01/26/25 01/27/25 01/28/25
06:59 06:59 06:59
Intake Total 1617 / 1617 540 / 540
Balance 1617 / 1617 540 / 540
Review of Systems
-
History Source: Patient
All other systems: Reviewed and negative
Physical Exam
-
General: No Apparent Distress
HEENT: PERRLA
Respiratory: Clear to Auscultation; Negative Wheezes
Cardiac: Regular Rhythm and S1/S2
GI: Soft and Nontender
Musculoskeletal: No Edema
Skin: Warm and Dry; Negative Rash
Neuro: AO x 3
Psych: Calm
Data Reviewed
-
Diagnostic Radiology: Report Reviewed by me
Labs: Labs Reviewed by me
[2025-01-27 09:29] LABS: Blood Urea Nitrogen 16 mg/dl (9-20); Calcium 8.7 mg/dl (8.4-10.2); Carbon Dioxide 25 mmol/L (22-30); Chloride 103 mmol/L (98-107); Estimated Creatinine Clearance 61 ml/min; Glucose 105 mg/dl (70-99); Potassium 4.3 mmol/L (3.5-5.1); Sodium 138 mmol/L (135-145); eGFR > 60.00
[2025-01-27] MEDS: NOVOLOG FLEXPEN SC (09:29)
[2025-01-27 11:00] VITALS: BP 112/52
[2025-01-27 11:21] LABS: Glucose - Point of Care 171 mg/dl (70-99)
[2025-01-27] MEDS: NOVOLOG FLEXPEN-LOW RESISTANCE 1 UNITS SC (11:27)
[2025-01-27] MEDS: NOVOLOG FLEXPEN 5 UNITS SC ×2 (11:28→17:04)
--- NOTE | 2025-01-27 13:27 | W.PN.GI.CBS2 ---
Today's Communication / Plan
-
Flexible sigmoidoscopy 01/26/2025 showing multiple diverticulosis and old blood clots and a lot of old blood without any evidence of active bleeding.
Patient continues to report multiple bowel movements, hemoglobin did not drop and has been stable.
Rectal exam by me today showing dark blood without any overt red blood.
Would continue clear liquid diet for now.
If continued bleeding, will benefit from CT angiogram. Patient wants us to check with nephrology, Dr. MCKEON'S office prior to getting CT with IV contrast.
Will follow
Assessment / Plan
-
74-year-old male with past medical history of polycystic kidney disease status post kidney transplant 2002 (on tacrolimus and prednisone), hyperlipidemia, hypertension, GERD, squamous cell cancer, recurrent basal cell cancer, metabolic syndrome,
diabetes (on insulin as well as Mounjaro), bilateral [place] nephrectomy, diverticulosis and colon polyp who presents to the emergency room with rectal bleeding. Initially was discharged then returns. Noted multiple intermittent red/burgundy stools
with clots since Wednesday. No AC. On Mounjaro prior to admission.
EGD: 08/21/2022 (Dr. Robert) - Normal esophagus. Biopsied.
- Erythematous mucosa in the antrum. Biopsied.
- 2 cm hiatal hernia.
- Normal examined duodenum.
Colonoscopy: 11/14/2021 (Dr. Robert) - Non-bleeding internal hemorrhoids.
- Diverticulosis in the sigmoid colon and in the
descending colon.
- The examination was otherwise normal.
- One 5 mm polyp in the ascending colon, removed with
a hot snare. Resected and retrieved. Clip (MR
conditional) was placed.
Rectal bleeding, diverticular vs other -- persistent since 01/22
History of kidney transplant
Diabetic on GLP-1
Plan:
Flexible sigmoidoscopy 01/26/2025 showing multiple diverticulosis and old blood clots and a lot of old blood without any evidence of active bleeding.
Patient continues to report multiple bowel movements, hemoglobin did not drop and has been stable.
Rectal exam by me today showing dark blood without any overt red blood.
Would continue clear liquid diet for now.
If continued bleeding, will benefit from CT angiogram. Patient wants us to check with nephrology, Dr. MCKEON'S office prior to getting CT with IV contrast.
Will follow
Subjective
Subjective
Date of Service: January 27, 2025
Patient reports couple of episodes of bloody bowel movements overnight and 7 AM this morning
Objective
Data Reviewed
Laboratory Data:
Laboratory Results
01/27/25 06:08
Laboratory Results
PT 13.6 Sec (11.4-14.6) 01/24/25 11:38
INR 0.99 01/24/25 11:38
APTT 25.0 Sec (23.4-35.0) 01/24/25 11:38
Magnesium 1.9 mg/dl (1.6-2.3) 01/25/25 06:01
Total Bilirubin 0.5 mg/dl (0.2-1.3) 01/24/25 11:38
AST 19 U/L (17-59) 01/24/25 11:38
ALT 25 U/L (0-50) 01/24/25 11:38
Alkaline Phosphatase 56 U/L (38-126) 01/24/25 11:38
Vital Signs and I&O:
Vital Signs
Temp Pulse Resp BP Pulse Ox
97.8 F 96 16 112/52 95
01/27/25 11:00 01/27/25 11:00 01/27/25 11:00 01/27/25 11:00 01/27/25 11:00
I&O
01/26/25 01/27/25 01/28/25
06:59 06:59 06:59
Intake Total 1617 / 1617 540 / 540
Balance 1617 / 1617 540 / 540
Physical Exam
Physical Exam
GI: Soft, Non Distended and Non Tender
[2025-01-27 14:59] LABS: Hemoglobin 8.6 g/dL (13.0-18.0)
[2025-01-27 15:00] VITALS: BP 113/70
[2025-01-27 16:54] LABS: Glucose - Point of Care 147 mg/dl (70-99)
[2025-01-27 19:15] VITALS: BP 122/60
[2025-01-27 20:26] LABS: Hemoglobin 8.5 g/dL (13.0-18.0)
[2025-01-27] MEDS: PEPCID 40 MG PO (21:23)
[2025-01-27] MEDS: PROGRAF 2 MG PO (21:23)
[2025-01-27] MEDS: CRESTOR 20 MG PO (21:23)
[2025-01-27] MEDS: LANTUS 0.22 UNITS SC (21:24)
[2025-01-27 21:30] LABS: Glucose - Point of Care 172 mg/dl (70-99)
[2025-01-27 23:08] VITALS: BP 123/61
[2025-01-28 03:05] VITALS: BP 117/56
[2025-01-28 07:05] VITALS: BP 118/61
[2025-01-28 07:10] LABS: Hematocrit 25.8 % (39.0-52.0); Hemoglobin 8.7 g/dL (13.0-18.0); Mean Corp Hgb Conc. 33.7 g/dL (33.0-37.0); Mean Corpuscular Hgb 29.8 pg (27.0-31.0); Mean Corpuscular Volume 88.4 fL (80.0-94.0); Mean Platelet Volume 10.5 fL (7.4-10.4); Platelet Count 170 10^3/uL (130-400); Red Blood Cell Count 2.92 10^6/uL (4.70-6.10); Red Cell Dist. Width 13.1 % (11.5-14.5); White Blood Cell Count 6.2 10^3/uL (4.8-10.8)
[2025-01-28 08:11] LABS: Glucose - Point of Care 123 mg/dl (70-99)
[2025-01-28] MEDS: NOVOLOG FLEXPEN-LOW RESISTANCE SC ×2 (08:16→12:07)
[2025-01-28] MEDS: NOVOLOG FLEXPEN 5 UNITS SC ×3 (08:16→17:25)
[2025-01-28 08:23] LABS: Blood Urea Nitrogen 21 mg/dl (9-20); Calcium 8.9 mg/dl (8.4-10.2); Carbon Dioxide 24 mmol/L (22-30); Chloride 103 mmol/L (98-107); Estimated Creatinine Clearance 50 ml/min; Glucose 97 mg/dl (70-99); Potassium 4.5 mmol/L (3.5-5.1); Sodium 136 mmol/L (135-145); eGFR > 60.00
--- NOTE | 2025-01-28 08:38 | W.PN.HOSP.TC ---
Today's Communication/Plan
-
advance diet
Assessment / Plan
Assessment / Plan
Mr. Tien Harp is a 74 man with hx IDDM, PCKD s/p renal transplant 2002, HTN, HLD presents to the ER with rectal bleeding. He was seen on 01/21, Hg 12.1, discharged with close outpatient follow up. He represents today with recurrent bleeding.
Bright Red Blood Per Rectum
Acute Blood Loss Anemia
-admitted to telemetry
-s/p sigmoidoscopy on 01/26 with e/o recent diverticular bleeding and large amounts of residual blood
--Hg slightly downtrending to 8.7 this morning but no further bleeding overnight
-appreciate GI
-hold CLOTH TRIMMER HAND aspirin (for PPx)
-confirmed with GI, OK to advance to [facility]
IDDM
-home regimen: Humalog 18 units/ 24 units/ 34 units; Lantus 44 units qhs; Mounjaro subQ Sa; Farxiga 10mg PO QD
-will order 1/2 dose Lantus 22 units qhs; 5 units pre-meals with SS while on CLD
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
-CLOTH TRIMMER HAND regimen: Tacrolimus 3mg PO QD; 2mg qhs and Prednisone 5mg PO QD
Essential HTN
-hold CLOTH TRIMMER HAND Amlodipine for now during bleed
-CLOTH TRIMMER HAND Losartan with hold parameters
HLD
-CLOTH TRIMMER HAND statin
GERD - CLOTH TRIMMER HAND PPI, Pepcid
DVT PPx SCD
FULL CODE
51 minutes spent on patient care
Anticipated Discharge: Within 24 hours
Subjective/Interval History
-
Date of Service: January 28, 2025
no significant bleeding overnight
feels better
Objective Data
-
Labs:
Laboratory Results
01/28/25
05:50
WBC 6.2
Hgb 8.7 L
Hct 25.8 L
Plt Count 170
Sodium 136
Potassium 4.5
Chloride 103
Carbon Dioxide 24
BUN 21 H
Creatinine 1.2
Glucose 97
Calcium 8.9
Vital Signs:
Vital Signs
Temp Pulse Resp BP Pulse Ox
98.1 F 101 16 118/61 94
01/28/25 07:05 01/28/25 07:05 01/28/25 07:05 01/28/25 07:05 01/28/25 07:05
I&O
01/27/25 01/28/25 01/29/25
06:59 06:59 06:59
Intake Total 540 / 540 1440 / 1440
Balance 540 / 540 1440 / 1440
Review of Systems
-
History Source: Patient
All other systems: Reviewed and negative
Physical Exam
-
General: No Apparent Distress
HEENT: PERRLA
Respiratory: Clear to Auscultation; Negative Wheezes
Cardiac: Regular Rhythm and S1/S2
GI: Soft and Nontender
Musculoskeletal: No Edema
Skin: Warm and Dry; Negative Rash
Neuro: AO x 3
Psych: Calm
Data Reviewed
-
Diagnostic Radiology: Report Reviewed by me
Labs: Labs Reviewed by me
[2025-01-28] MEDS: PROTONIX 40 MG PO (09:21)
[2025-01-28] MEDS: PROGRAF 3 MG PO (09:21)
[2025-01-28] MEDS: COZAAR 100 MG PO (09:21)
[2025-01-28] MEDS: FLOMAX 0.4 MG PO (09:21)
[2025-01-28] MEDS: DELTASONE 5 MG PO (09:22)
--- NOTE | 2025-01-28 10:54 | W.PN.GI.CBS2 ---
Today's Communication / Plan
-
Plan:
Flexible sigmoidoscopy 01/26/2025 showing multiple diverticulosis and old blood clots and a lot of old blood without any evidence of active bleeding.
Patient continues to report multiple bowel movements, hemoglobin did not drop and has been stable.
Rectal exam by me today showing dark blood without any overt red blood.
Currently on low residue diet
Hemoglobin has been stable
Continue low residue diet after discharge for a couple of days. Continue Metamucil as an outpatient.
He has an appointment with Dr. Robert this coming week and can plan for colonoscopy after.
Assessment / Plan
-
74-year-old male with past medical history of polycystic kidney disease status post kidney transplant 2002 (on tacrolimus and prednisone), hyperlipidemia, hypertension, GERD, squamous cell cancer, recurrent basal cell cancer, metabolic syndrome,
diabetes (on insulin as well as Mounjaro), bilateral [place] nephrectomy, diverticulosis and colon polyp who presents to the emergency room with rectal bleeding. Initially was discharged then returns. Noted multiple intermittent red/burgundy stools
with clots since Wednesday. No AC. On Mounjaro prior to admission.
EGD: 08/21/2022 (Dr. Robert) - Normal esophagus. Biopsied.
- Erythematous mucosa in the antrum. Biopsied.
- 2 cm hiatal hernia.
- Normal examined duodenum.
Colonoscopy: 11/14/2021 (Dr. Robert) - Non-bleeding internal hemorrhoids.
- Diverticulosis in the sigmoid colon and in the
descending colon.
- The examination was otherwise normal.
- One 5 mm polyp in the ascending colon, removed with
a hot snare. Resected and retrieved. Clip (MR
conditional) was placed.
Rectal bleeding, diverticular vs other -- persistent since 01/22
History of kidney transplant
Diabetic on GLP-1
Plan:
Flexible sigmoidoscopy 01/26/2025 showing multiple diverticulosis and old blood clots and a lot of old blood without any evidence of active bleeding.
Patient continues to report multiple bowel movements, hemoglobin did not drop and has been stable.
Rectal exam by me today showing dark blood without any overt red blood.
Currently on low residue diet
Hemoglobin has been stable
Continue low residue diet after discharge for a couple of days. Continue Metamucil as an outpatient.
He has an appointment with Dr. Robert this coming week and can plan for colonoscopy after.
Subjective
Subjective
Date of Service: January 28, 2025
Patient without any abdominal pain, nausea or vomiting. No further bloody bowel movements. Tolerating full liquid diet and advance to low residue diet today.
Objective
Data Reviewed
Laboratory Data:
Laboratory Results
01/28/25 05:50
01/28/25 05:50
Laboratory Results
PT 13.6 Sec (11.4-14.6) 01/24/25 11:38
INR 0.99 01/24/25 11:38
APTT 25.0 Sec (23.4-35.0) 01/24/25 11:38
Magnesium 1.9 mg/dl (1.6-2.3) 01/25/25 06:01
Total Bilirubin 0.5 mg/dl (0.2-1.3) 01/24/25 11:38
AST 19 U/L (17-59) 01/24/25 11:38
ALT 25 U/L (0-50) 01/24/25 11:38
Alkaline Phosphatase 56 U/L (38-126) 01/24/25 11:38
Vital Signs and I&O:
Vital Signs
Temp Pulse Resp BP Pulse Ox
98.1 F 101 16 118/61 94
01/28/25 07:05 01/28/25 09:21 01/28/25 07:05 01/28/25 09:21 01/28/25 07:05
I&O
01/27/25 01/28/25 01/29/25
06:59 06:59 06:59
Intake Total 540 / 540 1440 / 1440
Balance 540 / 540 1440 / 1440
Physical Exam
Physical Exam
GI: Soft, Non Distended and Non Tender
[2025-01-28 11:08] VITALS: BP 120/65
[2025-01-28 11:58] LABS: Glucose - Point of Care 122 mg/dl (70-99)
[2025-01-28] MEDS: FERRLECIT 110 MG IV (13:03)
--- NOTE | 2025-01-28 13:03 | CM ---
Met with pt at bedside
Beatriz solids
to transport when d/c'ed
Given IMM
Plan - anticipate home no needs when medically ready
[2025-01-28 15:04] VITALS: BP 104/60
[2025-01-28 17:13] LABS: Glucose - Point of Care 186 mg/dl (70-99)
[2025-01-28] MEDS: NOVOLOG FLEXPEN-LOW RESISTANCE 1 UNITS SC (17:25)
[2025-01-28 19:45] VITALS: BP 128/63
[2025-01-28] MEDS: CRESTOR 20 MG PO (22:47)
[2025-01-28 22:48] LABS: Glucose - Point of Care 185 mg/dl (70-99)
[2025-01-28] MEDS: LANTUS 0.22 UNITS SC (22:48)
[2025-01-28] MEDS: PROGRAF 2 MG PO (22:48)
[2025-01-28] MEDS: PEPCID 40 MG PO (22:48)
[2025-01-28 22:52] VITALS: BP 124/62
[2025-01-29 04:05] VITALS: BP 114/59
[2025-01-29 07:30] VITALS: BP 145/72
[2025-01-29 08:24] LABS: Hematocrit 26.3 % (39.0-52.0); Hemoglobin 8.7 g/dL (13.0-18.0); Mean Corp Hgb Conc. 33.1 g/dL (33.0-37.0); Mean Corpuscular Hgb 29.4 pg (27.0-31.0); Mean Corpuscular Volume 88.9 fL (80.0-94.0); Mean Platelet Volume 10.6 fL (7.4-10.4); Platelet Count 184 10^3/uL (130-400); Red Blood Cell Count 2.96 10^6/uL (4.70-6.10); Red Cell Dist. Width 13.1 % (11.5-14.5); White Blood Cell Count 5.9 10^3/uL (4.8-10.8)
--- NOTE | 2025-01-29 08:26 | W.PN.HOSP.TC ---
Today's Communication/Plan
-
OK for DC today
Assessment / Plan
Assessment / Plan
Mr. Tien Harp is a 74 man with hx IDDM, PCKD s/p renal transplant 2002, HTN, HLD presents to the ER with rectal bleeding. He was seen on 01/21, Hg 12.1, discharged with close outpatient follow up. He represents today with recurrent bleeding.
Bright Red Blood Per Rectum
Acute Blood Loss Anemia
-admitted to telemetry
-s/p sigmoidoscopy on 01/26 with e/o recent diverticular bleeding and large amounts of residual blood
-Hg stable
-appreciate GI
-hold CASE MANAGER SPECIALIST aspirin (for PPx)
-confirmed with GI, OK to advance to [facility]
-OK for DC
IDDM
-home regimen: Humalog 18 units/ 24 units/ 34 units; Lantus 44 units qhs; Mounjaro subQ Sa; Farxiga 10mg PO QD
-will order 1/2 dose Lantus 22 units qhs; 5 units pre-meals with SS while on CLD
-resume home regimen on DC
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
-CASE MANAGER SPECIALIST regimen: Tacrolimus 3mg PO QD; 2mg qhs and Prednisone 5mg PO QD
Essential HTN
-can resume amlodipine on DC
-CASE MANAGER SPECIALIST Losartan with hold parameters
HLD
-CASE MANAGER SPECIALIST statin
GERD - CASE MANAGER SPECIALIST PPI, Pepcid
DVT PPx SCD
FULL CODE
51 minutes spent on patient care
Anticipated Discharge: Today
Subjective/Interval History
-
Date of Service: January 29, 2025
no further bloody BM overnight
feels ready to go home
Objective Data
-
Labs:
Laboratory Results
01/29/25
07:37
WBC 5.9
Hgb 8.7 L
Hct 26.3 L
Plt Count 184
Vital Signs:
Vital Signs
Temp Pulse Resp BP Pulse Ox
98.0 F 100 18 145/72 95
01/29/25 07:30 01/29/25 07:30 01/29/25 07:30 01/29/25 07:30 01/29/25 07:30
I&O
01/28/25 01/29/25 01/30/25
06:59 06:59 06:59
Intake Total 1440 / 1440 2099
Balance 1440 / 1440 2099
Review of Systems
-
History Source: Patient
All other systems: Reviewed and negative
Physical Exam
-
General: No Apparent Distress
HEENT: PERRLA
Respiratory: Clear to Auscultation; Negative Wheezes
Cardiac: Regular Rhythm and S1/S2
GI: Soft and Nontender
Musculoskeletal: No Edema
Skin: Warm and Dry; Negative Rash
Neuro: AO x 3
Psych: Calm
Data Reviewed
-
Diagnostic Radiology: Report Reviewed by me
Labs: Labs Reviewed by me
[2025-01-29 08:27] LABS: Glucose - Point of Care 127 mg/dl (70-99)
[2025-01-29] MEDS: NOVOLOG FLEXPEN-LOW RESISTANCE SC (08:31)
[2025-01-29] MEDS: FLOMAX 0.4 MG PO (08:57)
[2025-01-29] MEDS: PROGRAF 3 MG PO (08:58)
[2025-01-29] MEDS: DELTASONE 5 MG PO (08:58)
[2025-01-29] MEDS: COZAAR 100 MG PO (08:58)
[2025-01-29] MEDS: PROTONIX 40 MG PO (08:58)
[2025-01-29] MEDS: NOVOLOG FLEXPEN SC (08:59)
--- NOTE | 2025-01-29 09:10 | W.DS.TRANS ---
DC Summary - Insurance Marketing Specialist
-
Discharge Instructions:
Discharge Diagnosis/Procedures Diverticular bleed
Diet Low Residue
Additional Diets Low residue x 48 more hours
Activity As tolerated
Driving Restrictions As prior to admission
Bathing Restrictions None
Instructions: Good food sources of iron
Stand-Alone Forms:
Changes to Home Medications: No
Discharge Medications:
DC Medications w/original date entered in [employer]
tacrolimus 1 mg capsule, immediate-release 3 mg PO DAILY Kidney Disease 12/12/14
aspirin 81 mg chewable tablet 81 mg PO DAILY Blood clot prevention/tx 12/03/21
famotidine 40 mg tablet 40 mg PO HS Gastrointestinal issue 12/03/21
multivitamin with folic acid 400 mcg tablet (Tab-A-Lalit) 1 tab PO DAILY Supplement 12/03/21
prednisone 5 mg tablet 5 mg PO DAILY 12/03/21
rosuvastatin 10 mg tablet 20 mg PO DAILY High cholesterol 12/03/21
tacrolimus 1 mg capsule, immediate-release 2 mg PO HS Kidney Disease 12/03/21
insulin glargine 100 unit/mL (3 mL) subcutaneous pen (Lantus Solostar U-100 Insulin) 44 units SC HS Diabetes 03/31/22
dapagliflozin propanediol 5 mg tablet (Farxiga) 10 mg PO DAILY 01/21/25
insulin lispro 200 unit/mL (3 mL) subcutaneous pen (Humalog KwikPen U-200 Insulin) 18 unit SC DAILY Diabetes 01/21/25
insulin lispro 200 unit/mL (3 mL) subcutaneous pen (Humalog KwikPen U-200 Insulin) 24 unit SC DAILY@1200 Diabetes 01/21/25
tamsulosin 0.4 mg capsule 0.4 mg PO DAILY Urinary Issue 01/21/25
tirzepatide 2.5 mg/0.5 mL subcutaneous pen injector (Mounjaro) 2.5 mg SC SA Diabetes 01/21/25
acetaminophen 325 mg tablet (Tylenol) 650 mg PO Q6HPRN PRN mild pain 01/24/25
amlodipine 10 mg tablet (Norvasc) 10 mg PO DAILY Blood Pressure 01/24/25
dexlansoprazole 60 mg capsule,biphase delayed release 60 mg PO DAILY Gastrointestinal Issue 01/24/25
docusate sodium 100 mg capsule (Colace) 100 mg PO DAILYPRN PRN constipation 01/24/25
insulin lispro 200 unit/mL (3 mL) subcutaneous pen (Humalog KwikPen U-200 Insulin) 34 unit SC QPM 01/24/25
losartan 100 mg tablet 100 mg PO DAILY Blood Pressure 01/24/25
psyllium 1 packet PO DAILY Constipation 01/24/25
Home Medication Changes
no
Pending Results: No
--- NOTE | 2025-01-29 10:36 | CM ---
Pt for discharge today
to transport home
Plan - home no needs
[2025-01-29 10:57] VITALS: BP 123/64
--- NOTE | 2025-01-29 12:04 | W.DCSUMMARY ---
Discharge Summary
Discharge Data
Date of Admission: 01/24/25
Date of Discharge: 01/29/25
-
Pending Results: No
Hospital Course
Discharging Physician : Dr. Gem Mcfarland
Disposition : Home
Primary care physician : Dr. Carolina Leal
Principal Discharge diagnosis :Diverticular Bleed
Hospital Course :
Mr. Tien Harp is a 74 man with hx IDDM, PCKD s/p renal transplant 2002, HTN, HLD presents to the ER with rectal bleeding. Triage vitals stable. Hg 10.2; had been 12.1 3 days earlier. He was admitted to medicine with GI consulting. He underwent
a sigmoidoscopy on 01/26 with evidence of recent diverticular bleeding and large amounts of residual blood, no active bleeding. His Hg trended down to 8.7 and remained stable without further bleeding over 24 hours. He feels ready for discharge, he
may resume his home aspirin.
He will follow up with Dr. Robert later this week and discuss colonoscopy.
Time spent on discharge was 35 minutes.
Important imaging findings :
Procedure findings :
Discharge Plan
-
Patient Disposition: Home (Routine Discharge)
Discharge Diagnosis/Procedures: Diverticular bleed
Diet: Low Residue
Additional Diets: Low residue x 48 more hours
Activity: As tolerated
Driving Restrictions: As prior to admission
Bathing Restrictions: None
Instructions: Good food sources of iron
Referrals:
Carolina Leal MD [Family Provider] - in less than 1 week
Sheri Robert MD [Active] - (follow up next week as planned )
Prescriptions:
Continued
tacrolimus 1 MG capsule
3 mg PO DAILY
tacrolimus 1 MG capsule
2 mg PO HS
famotidine 40 MG tablet
40 mg PO HS
prednisone 5 MG tablet
5 mg PO DAILY
aspirin 81 MG tablet,chewable
81 mg PO DAILY
rosuvastatin 10 MG tablet
20 mg PO DAILY
multivitamin with folic acid [Tab-A-Lalit] 1 TABLET tablet
1 tab PO DAILY
insulin glargine [Lantus Solostar U-100 Insulin] 300 UNITS/3 ML insulin pen
44 units SC HS
tamsulosin 0.4 mg Capsule
0.4 mg PO DAILY
dapagliflozin propanediol [Farxiga] 5 mg Tablet
10 mg PO DAILY
Mounjaro 2.5 mg/0.5 mL Pen Injector
2.5 mg SC SA
Rx Instructions:
for 4 weeks
Humalog KwikPen Insulin 200 UNIT/ML insulin pen
18 unit SC DAILY
Humalog KwikPen Insulin 200 UNIT/ML insulin pen
24 unit SC DAILY@1200
acetaminophen [Tylenol] 325 mg Tablet
650 mg PO Q6HPRN PRN (Reason: mild pain)
psyllium Packet
1 packet PO DAILY
amlodipine [Norvasc] 10 mg Tablet
10 mg PO DAILY
docusate sodium [Colace] 100 mg Capsule
100 mg PO DAILYPRN PRN (Reason: constipation)
losartan 100 mg Tablet
100 mg PO DAILY
dexlansoprazole 60 mg capsule,biphase delayed releas
60 mg PO DAILY
Humalog KwikPen Insulin 200 unit/mL (3 mL) Insulin Pen
34 unit SC QPM
Discharge Orders:
Discharge Patient (As Directed); Ordered 01/29/25
Ordered By: Gem Mcfarland
Discharge Date and Time
Discharge Date/Time: 01/29/25 11:05
Print Language: OMANI
== END 2025-01-29 11:05 | disposition home or self-care (01) | DRG 378 ==
LOC: 2 SOUTH 14:52
PROVIDERS: Emergency Medicine; Internal Medicine Gastroenterology; Nurse Practitioner Adult Health; ADMITTING PHYSICIAN Student in an Organized Health Care Education/Training Program; EMERGENCY PHYSICIAN Emergency Medicine; FAMILY PHYSICIAN Family Medicine
PROC: 0DJD8ZZ Inspection of Lower Intestinal Tract, Via Natural or Artificial Opening Endoscopic (ICD-10-PCS; 2025-01-26)
DX: K57.31 Diverticulosis of large intestine without perforation or abscess with bleeding (principal); D62 Acute posthemorrhagic anemia; Z94.0 Kidney transplant status; D84.821 Immunodeficiency due to drugs; E11.9 Type 2 diabetes mellitus without complications; Z79.4 Long term (current) use of insulin; I10 Essential (primary) hypertension; E78.00 Pure hypercholesterolemia, unspecified; Z79.621 Long term (current) use of calcineurin inhibitor; F17.290 Nicotine dependence, other tobacco product, uncomplicated; Z79.82 Long term (current) use of aspirin; Z79.84 Long term (current) use of oral hypoglycemic drugs
CPT/HCPCS: 80048; 80053; 82962; 83036; 83735; 85014; 85018; 85025; 85027; 85610; 85730; 86850; 86900; 86901; 96360; 99284; J2916